=== PATIENT | male | born 2000 | race Caucasian/White ===

== ENCOUNTER 2021-01-14 12:19 | Emergency (ER) | payer OTHER ==
[~2021-01-14] VITALS: Ht 182.9 cm; Wt 77.3 kg
[2021-01-14 12:27] VITALS: BP 128/75
[2021-01-14] MEDS ORDERED: ALBU8.5H8 IH (15:12)
== END 2021-01-14 15:26 | disposition home or self-care (01) ==
LOC: ER 12:20
DX: R06.00 Dyspnea, unspecified (principal); R06.02 Shortness of breath; R07.89 Other chest pain; Z79.899 Other long term (current) drug therapy
CPT/HCPCS: 71046; 93005; 99283